=== PATIENT | male | born 1980 ===

== ENCOUNTER 2021-12-12 14:55 | Outpatient (RCR) | payer BC, SELFPAY ==
[2021-12-12] MEDS: FAMOTIDINE 20 MG TABLET PO (15:49)
[2021-12-12] MEDS: ACETAMINOPHEN 325 MG TABLET 650 MG PO (15:49)
[2021-12-12] MEDS: diphenhydrAMINE HCl CAP 25 MG CAPSULE PO (15:49)
[2021-12-12 15:51] VITALS: BP 138/81; PULSE 93; RESP 20; O2SAT 98
[2021-12-12 16:45] VITALS: BP 113/76
== END 2021-12-12 17:00 ==
LOC: AMCINF 14:55
PROVIDERS: Visit Provider Internal Medicine Hematology & Oncology
DX: U07.1 COVID-19 (principal); J44.9 Chronic obstructive pulmonary disease, unspecified
CPT/HCPCS: A9270; M0243; Q0244